=== PATIENT | female | born 1955 | race Caucasian/White ===

== ENCOUNTER → 2016-12-07 | Outpatient (CLI) | payer BC ==
[2016-12-07] VITALS (8 sets, daily range): BP systolic 110–136; BP diastolic 42–77; PULSE 59–72
[~2016-12-07] VITALS: Ht 172.7 cm; Wt 77.3 kg
[~2016-12-07] MED LIST: ADVIL200 MG PO; CALTRATE-600 W600 MG PO; COMPLETE SENIOR1 TA1 PO; COZAAR 25MG25 MG/TAB PO; ENBREL50 MG/ML SC; LUTEIN20 M1 PO
== END ==
LOC: COL.RAD 12:00
DX: D36.0 Benign neoplasm of lymph nodes (principal); C53.8 Malignant neoplasm of overlapping sites of cervix uteri; I10 Essential (primary) hypertension
CPT/HCPCS: 25757

== ENCOUNTER 2019-05-02 16:47 | Emergency (ER) | payer BC ==
[~2019-05-02] VITALS: Ht 172.7 cm; Wt 59.1 kg
[2019-05-02 18:00] LABS: BASO # 0.1 (0.0-0.2); BASO % 0.3 % (0.0-2.0); GRAN # 13.6 (1.4-6.5); GRAN % 86.5 % (42.2-75.2); HEMOGLOBIN 10.5 g/dl (12.5-16.0); LYMPH # 0.5 (1.2-3.4); MEAN CELL VOLUME 87 fl (80.0-100.0); MEAN CORPUSCULAR HEMOGLOBIN 30 pg (27.0-31.0); MEAN CORPUSCULAR HGB CONC 35 g/dl (33.0-37.0); MEAN PLATELET VOLUME 10.1 fl (7.4-10.4); MONO # 1.4 (0.1-0.6); MONO % 9.1 % (1.7-9.3); PLATELET COUNT 352 K/mm3 (130-400); RED BLOOD COUNT 3.49 M/mm3 (4.10-5.30); REDCELL DISTRIBUTION WIDTH-CV 14.2 % (11.5-14.5)
[2019-05-02 18:07] LABS: INR 1.6 (0.8-3.0); PROTHROMBIN TIME 19.2 SECONDS (9.7-12.8)
[2019-05-02 18:09] LABS: HEMATOCRIT 30.4 % (37.0-47.0)
[2019-05-02 18:10] LABS: BILIRUBIN,TOTAL 0.7 mg/dL (0.0-1.0); CALCIUM 8.2 mg/dL (8.4-10.2); CREATININE, serum 3.63 (0.52-1.25); POTASSIUM 4.7 mmol/L (3.4-5.0); TOTAL PROTEIN 6.6 gm/dL (6.4-8.2)
[2019-05-02 18:20] LABS: TROPONIN-I 0.023 ng/mL (0.000-0.035)
[2019-05-02 18:26] LABS: COLLECTION METHOD CLEAN CATCH
[2019-05-02 18:40] LABS: PH 5 (5-8); SQUAMOUS EPITHELIAL None Seen /hpf; URINE APPEARANCE Turbid; URINE BACTERIA Many /hpf; URINE BILIRUBIN Negative (NEGATIVE); URINE BLOOD 3+ (NEGATIVE); URINE COLOR Amber; URINE GLUCOSE Negative (NEGATIVE); URINE KETONE Negative (NEGATIVE); URINE LEUKOCYTE ESTERASE 2+ (NEGATIVE); URINE NITRATE Negative (NEGATIVE); URINE PROTEIN(semi-quant) 2+ (NEGATIVE); URINE RBC >50 /hpf; URINE UROBILINOGEN Negative (NEGATIVE)
[2019-05-02 20:15] VITALS: BP 114/74; PULSE 111; TEMP 100.4
== END 2019-05-02 20:35 | disposition short-term general hospital (02) ==
LOC: COL.ER 16:47
PROVIDERS: Emergency Medicine
DX: N39.0 Urinary tract infection, site not specified (principal); E86.0 Dehydration; E87.8 Other disorders of electrolyte and fluid balance, not elsewhere classified; N17.9 Acute kidney failure, unspecified; C53.9 Malignant neoplasm of cervix uteri, unspecified
CPT/HCPCS: J0696; J7030

== ENCOUNTER → 2019-06-09 | Outpatient (CLI) | payer BC | LOC: COL.RAD 10:01 | DX: C53.8 Malignant neoplasm of overlapping sites of cervix uteri (principal); K76.9 Liver disease, unspecified; N30.90 Cystitis, unspecified without hematuria; Z95.9 Presence of cardiac and vascular implant and graft, unspecified; Z96.0 Presence of urogenital implants | CPT/HCPCS: Q9967 ==

== ENCOUNTER 2019-07-27 09:00 | Day surgery (SDC) | payer BC ==
[~2019-07-27] VITALS: Ht 172.7 cm; Wt 62.0 kg
[2019-07-27 09:49] VITALS: BP 127/84; PULSE 89; TEMP 98.2
[2019-07-27] MEDS ORDERED: CIPRO 500MG TA500 MG PO (09:58)
[2019-07-27] MEDS ORDERED: COMPAZINE 110 MG/TAB PO (09:59)
[2019-07-27] MEDS ORDERED: SENOKOT S 50 MG1 TAB PO (10:00)
--- NOTE | 2019-07-27 10:02 | NUR ---
TO RM AT 0912- CALL LIGHT IN REACH AT BEDSIDE.
--- NOTE | 2019-07-27 10:16 | NUR ---
Initial visit; Prayer request. Patient and her thanked Manager Of Hospital for offering encouragement and prayer prior to 'procedure' and offered God's blessings of healing.
[2019-07-27 11:12] VITALS: BP 109/76; PULSE 95; TEMP 97.7
--- NOTE | 2019-07-27 11:12 | NUR ---
TO RM 1 PER CART FROM [facility] ALERT ORIETNED X3, TALKING TO STAFF. RECEIVED OJ. MARAVILLA SET DRESSING OVER INCISION CLEAN DRY INTACT.
[2019-07-27 11:25] VITALS: BP 110/78; PULSE 78
--- NOTE | 2019-07-27 11:25 | NUR ---
RECEIVED MUFFIN. AT BEDSIDE DENIES PAIN OR DISCOMFORT AT THIS TIME.
[2019-07-27 11:40] VITALS: BP 126/79; PULSE 82
--- NOTE | 2019-07-27 11:40 | NUR ---
ATE 100% AND TOLERATED WELL.
--- NOTE | 2019-07-27 11:50 | NUR ---
AMBULATED TO BATHROOM AND VOIDED DISCONTINUED IV AND INT
--- NOTE | 2019-07-27 12:00 | NUR ---
RECEIVED DISCHARGE INSTRUCTIONS AND VERBALIZED UNDERSTANDING.
--- NOTE | 2019-07-27 12:15 | NUR ---
DISCHARGED PER WC BY NURSING STAFF TO PRIVATE CAR IN CARE OF - MARV.
== END 2019-07-27 12:30 | disposition home or self-care (01) ==
LOC: SDCO 09:00
DX: T80.818A Extravasation of other vesicant agent, initial encounter (principal); C53.9 Malignant neoplasm of cervix uteri, unspecified; I10 Essential (primary) hypertension; M06.9 Rheumatoid arthritis, unspecified; Z82.49 Family history of ischemic heart disease and other diseases of the circulatory system; Z80.8 Family history of malignant neoplasm of other organs or systems; Z85.3 Personal history of malignant neoplasm of breast; Z82.3 Family history of stroke; Z95.828 Presence of other vascular implants and grafts
CPT/HCPCS: J2250; J2405; J2704; J7120

== ENCOUNTER → 2019-10-02 | Outpatient (CLI) | payer BC ==
[~2019-10-02] MED LIST changes: +CIPRO 500MG TA500 MG PO; +COMPAZINE 110 MG/TAB PO; +SENOKOT S 50 MG1 TAB PO
[2019-10-02 14:26] LABS: ALBUMIN 3.9 gm/dL (3.5-5.0); BILIRUBIN,TOTAL 0.4 mg/dL (0.0-1.0); CALCIUM 9.3 mg/dL (8.4-10.2); CREATININE, serum 1.23 (0.52-1.25); POTASSIUM 4.1 mmol/L (3.4-5.0); TOTAL PROTEIN 7.6 gm/dL (6.4-8.2)
== END ==
LOC: COL.LAB 13:35 → COL.RAD 13:35
PROVIDERS: Obstetrics & Gynecology Gynecologic Oncology
DX: Z01.812 Encounter for preprocedural laboratory examination (principal); C53.9 Malignant neoplasm of cervix uteri, unspecified; N32.9 Bladder disorder, unspecified; K62.89 Other specified diseases of anus and rectum
CPT/HCPCS: A9585

== ENCOUNTER 2023-09-02 10:00 | Inpatient (IN) | payer MEDICARE, OTHER ==
[~2023-09-02] VITALS: Ht 170.2 cm; Wt 72.9 kg
[2023-09-02] VITALS (542 sets, daily range): BP systolic 123–127; BP diastolic 82–84; PULSE 101–117; TEMP 98.1–98.6; O2SAT 78–100
[~2023-09-02 10:00] MED LIST changes: +ACTEMRA80 MG/4 ML; +BONIVA150 MG PO; +CALTRATE 600 +1 TAB PO; +CENTRUM SILVER1 CTB PO; +CLARITIN 1010 MG/TAB PO; +CRANRX500 MG PO; +EFFEXOR-XR150 MG PO; +HCTZ 25MG TAB25 MG PO; +K-DUR 10 MEQ T10 MEQ PO; +NORVASC 5MG5 MG/TAB PO; +PREDNISONE 5MG5 MG PO; +PRIL40 PO; +TYLENOL 500MG500 MG PO; +VITRON-C PO; +ZOFRAN8 MG PO
--- NOTE | 2023-09-02 12:10 | NUR ---
REPORT CALLED FROM ALEXANDRE AT TRANSFERING FACILITY AT 1057. PT WHEELED TO ROOM [place] [id number] AT 1210 BY EMS. PT ABLE TO STAND AND TRANSFER TO BED WITH SBA AND NS AT GRAVITY INFUSING. VS WNL AT THIS TIME AND PT DENIES PAIN. SHE IS A&O X3 AND ASSESSMENTS COMPLETED. SHE IS RESTING IN BED IN THE LOWEST POSITION, CALL LIGHT IS WITHIN REACH, AND SHE REPORTS HER SPOUSE IS ON THE WAY TO THE HOSPITAL. HER EAR RINGS AND WATCH WERE PLACED IN THE BREAST POCKET OF HER COAT AT HER DIRECTION UNTIL HER SPOUSE ARRIVES. SHE DENIES ADDITIONAL NEEDS AT THIS TIME.
[2023-09-02 13:32] LABS: HEMOGLOBIN 11.9 g/dl (12.5-16.0); MEAN CELL VOLUME 94 fl (80.0-100.0); MEAN CORPUSCULAR HEMOGLOBIN 32 pg (27-31); MEAN CORPUSCULAR HGB CONC 34 g/dl (33.0-37.0); MEAN PLATELET VOLUME 9.7 fl (7.4-10.4); PLATELET COUNT 250 K/mm3 (130-400); RED BLOOD COUNT 3.68 M/mm3 (4.10-5.30); REDCELL DISTRIBUTION WIDTH-CV 14.1 % (11.5-14.5)
[2023-09-02 13:34] LABS: HEMATOCRIT 34.7 % (37.0-47.0)
[2023-09-02 13:47] LABS: CALCIUM 7.4 mg/dL (8.4-10.2); CREATININE, serum 1.48 mg/dL (0.57-1.11); POTASSIUM 4.2 mmol/L (3.5-4.5)
[2023-09-02 14:08] LABS: BAND 50 % (0-10); NEUTROPHILS 49 % (42.0-75.2)
[2023-09-02 14:09] LABS: PLATELET ESTIMATE NORMAL (NORMAL)
[2023-09-02] MEDS ORDERED: COZAAR 25MG25 MG/TAB PO (15:37)
[2023-09-03] VITALS (556 sets, daily range): BP systolic 100–130; BP diastolic 53–78; PULSE 84–106; TEMP 97.7–97.9; O2SAT 68–100
[2023-09-03 04:48] LABS: HEMOGLOBIN 11.5 g/dl (12.5-16.0); MEAN CELL VOLUME 95 fl (80.0-100.0); MEAN CORPUSCULAR HEMOGLOBIN 32 pg (27-31); MEAN CORPUSCULAR HGB CONC 34 g/dl (33.0-37.0); PLATELET COUNT 244 K/mm3 (130-400); REDCELL DISTRIBUTION WIDTH-CV 14.2 % (11.5-14.5)
[2023-09-03 04:56] LABS: HEMATOCRIT 34.1 % (37.0-47.0)
[2023-09-03 05:05] LABS: CALCIUM 7.8 mg/dL (8.4-10.2); CREATININE, serum 1.64 mg/dL (0.57-1.11); MAGNESIUM 1.6 mg/dL (1.6-2.6); POTASSIUM 3.9 mmol/L (3.5-4.5)
--- NOTE | 2023-09-03 06:09 | NUR ---
0605; BILAT NEPHROSTOMY TUBES FLUSHED WITH 10CC NS, PT TOLERATED WELL. ASCEPTIC TECHNIQUE USED.
--- NOTE | 2023-09-03 07:00 | NUR ---
Report received from RADHA Cohen. Reviewed labs and gttts. Reproted that dressings to bilateral neph tubees were just changed. Dressing to prot and neph tubes are CDI. Pt sitting up in bed and ordering breakfast. Denies pain or any other needs at this time. Call light wthin reach.
--- NOTE | 2023-09-03 07:28 | NUR ---
0645: dressing chance to bilaterl nephrotomy tube sites, using small drain 2x2, chlorhexidine, and large op site dressing. tube s sutured in. placed small loop of tube in dressing.
[2023-09-03] MEDS ORDERED: PROTONIX 40MG T40 MG PO (07:44)
[2023-09-03] MEDS ORDERED: ALPHAGAN OPHTH D5 ML OU (07:55)
--- NOTE | 2023-09-03 09:57 | NUR ---
Initial visit; Patient and Criminal Intelligence Analyst agreed that it seems as if there is always a challenge in our lives. Criminal Intelligence Analyst offers insight into facing one day at a time and living God's plan for us. Criminal Intelligence Analyst offered prayer and God's blessings for healing.
--- NOTE | 2023-09-03 10:11 | NUR ---
CELL COVERER reviewed pt's clinical record and noted she was transferred here from another hospital, [facility] for pain in her side secondary to metastatic cervical cancer. CELL COVERER met with pt @ the bedside after rounds this morning to complete inital intake. Pt was pleasant and oriented to person, time, place and situation. x 16 years, she lives with her in [place] in [place], [place]. She has no biological children, but has a stepson, Elvira, also her alternate HCPOA, who lives nearby. (Her is primary and the documents are @ home). Pt reports she suffers from cervical cancer and she is on her 3rd round of chemotherapy that she will receive on 09/10. Pt reports she is independent in her IADL's and her , a bey assists with ADL's, such as cooking etc. She ambulates independently, using no assistive devices, but holds onto furniture for support. "I'm wobbly." Pt admitted she fell 3 weeks ago on her living room carpet but she denied sustaining any injuries. Pt shared she will meed another primary care provider in the [place] area b/c her current provider is ill. Currently, Dr. Mejia is listed as her primary care provider, and pt fills her prescriptions thru [facility] in [place]. Pt states she does not anitcipate a need for outpt services @ home. No other concerns noted.
[2023-09-03] MEDS ORDERED: [UNRECOGNIZED DRUG - OTHER] IV (10:18)
--- NOTE | 2023-09-03 12:57 | NUR ---
Report called to Stevan at 1223. All questions answered. Bilateral nephrostomy tubes empited prior to going upstiars. Pt escorted upstairs via wheelchair.
--- NOTE | 2023-09-03 13:14 | NUR ---
PATIENT CAME IN FROM [facility]. PATIENT IS ALERT AND ORIENTED X4. PATIENT REPORTS NO PAIN. PATIENT HAD BILATERAL NEPHROSTOMY TUBES. DRESSING CLEAN DRY INTACT IN THE BILATERAL INCISION SITES. DRAINAGE IS BLOOD TINGE. PATIENT CALL LIGHT WITH IN REACH. ALARM BED ON. BED AT LOWEST POSITION.
--- NOTE | 2023-09-03 20:30 | NUR ---
Initial shift assessment done- denies pain at this time, states not much of an appetite, IV fluids of LR at 75cc/hr, VSS, has bilateral nephrostomy tubes draining dk otto urine.
[2023-09-04 00:29] VITALS: BP 125/68; PULSE 103; TEMP 98
[2023-09-04 03:17] VITALS: BP 133/78; PULSE 94; TEMP 98.2
--- NOTE | 2023-09-04 06:30 | NUR ---
Did not sleep much during the night-- up to the bathroom 2-3 times for small amount liquid/soft stool, states stomach is a little upset but just wants a Sprite now Did irrigate bilateral nephrostomy tubes with 10cc sterile saline this morning- right had 175cc out and left had 150cc out for this shift
[2023-09-04 06:38] LABS: HEMOGLOBIN 11.4 g/dl (12.5-16.0); MEAN CELL VOLUME 93 fl (80.0-100.0); MEAN CORPUSCULAR HEMOGLOBIN 32 pg (27-31); MEAN CORPUSCULAR HGB CONC 35 g/dl (33.0-37.0); MEAN PLATELET VOLUME 10.4 fl (7.4-10.4); PLATELET COUNT 251 K/mm3 (130-400); RED BLOOD COUNT 3.55 M/mm3 (4.10-5.30); REDCELL DISTRIBUTION WIDTH-CV 13.9 % (11.5-14.5)
[2023-09-04 06:45] LABS: CALCIUM 7.5 mg/dL (8.4-10.2); CREATININE, serum 1.32 mg/dL (0.57-1.11); MAGNESIUM 1.4 mg/dL (1.6-2.6)
[2023-09-04 06:48] LABS: POTASSIUM 2.9 mmol/L (3.5-4.5)
[2023-09-04 07:59] VITALS: BP 127/89; PULSE 109; TEMP 97.7
--- NOTE | 2023-09-04 12:29 | NUR ---
Composing Machine Operator rounds: Long conversation with Patient about her Buddhism [place]; her mosque; and her cancer treatments. Composing Machine Operator provided supportive listening as Patient conducted life review. Composing Machine Operator prayed for all that Patient discussed. Composing Machine Operator provided Patient with deidre fitzpatrick.
[2023-09-04 13:10] VITALS: BP 138/86; PULSE 94; TEMP 97.7
[2023-09-04 15:12] LABS: CLOSTRIDIUM DIFF A/B NEG
[2023-09-04 15:32] VITALS: BP 117/74; PULSE 110; TEMP 97.8
[2023-09-04 20:03] VITALS: BP 146/86; PULSE 96; TEMP 98.5
[2023-09-04 21:31] LABS: MAGNESIUM 1.4 mg/dL (1.6-2.6); POTASSIUM 3.3 mmol/L (3.5-4.5)
[2023-09-05] VITALS (7 sets, daily range): BP systolic 129–150; BP diastolic 89–96; PULSE 94–107; TEMP 97.5–98.9
--- NOTE | 2023-09-05 06:16 | NUR ---
Shift assessment completed at 2030. A7Ox4. Pt recieved all medications per emar. Portacath on right side of ther chest. Bilateral nephrostomy tubes on right and left side of her lower back. Pt is no longer in contact precautions. At 0200 nephrostomy tubes were flushed with 10 ml each one and emptied around 420 ml of dark otto and cloudy urine. Patient had three episodes of loose stool during the night and denied any pain. Potassium and magnesium were checked and replaced per orders. Fluids running at this time. Bed alarm on, belongings and call light are within reach.
--- NOTE | 2023-09-05 08:33 | NUR ---
PATIENT ALERT AND ORIENTED X4. PATIENT IS LAYING IN BED UPON ENTERING ROOM. PATIENT REPORTED HAVING ABOUT 3 LOOSE STOOL EPISODES LAST NIGHT. PATIENT DENIES PAIN. CALL LIGHT WITHIN REACH.
[2023-09-05 08:39] LABS: HEMOGLOBIN 11.9 g/dl (12.5-16.0); MEAN CELL VOLUME 93 fl (80.0-100.0); MEAN CORPUSCULAR HEMOGLOBIN 32 pg (27-31); MEAN CORPUSCULAR HGB CONC 35 g/dl (33.0-37.0); MEAN PLATELET VOLUME 10.2 fl (7.4-10.4); PLATELET COUNT 266 K/mm3 (130-400); REDCELL DISTRIBUTION WIDTH-CV 14.1 % (11.5-14.5)
[2023-09-05 08:45] LABS: CALCIUM 7.5 mg/dL (8.4-10.2); CREATININE, serum 1.13 mg/dL (0.57-1.11); HEMATOCRIT 34.3 % (37.0-47.0); MAGNESIUM 1.6 mg/dL (1.6-2.6)
[2023-09-06] VITALS (8 sets, daily range): BP systolic 125–140; BP diastolic 80–92; PULSE 100–103; TEMP 97.5–97.9
--- NOTE | 2023-09-06 05:15 | NUR ---
ASSESSMENT COMPLETE FOR DYNAMICS AX SOLUTION ARCHITECT. PT COMPLAINED OF DIARRHEA. PT GIVEN IMODIUM PER ORDERS. PT DID NOT FEEL THE IMODIUM WAS EFFECTIVE, SHE TAKES TWICE THE DOSE AT HOME. BILAT. NEPHROSTOMY TUBES FLUSHED AND BAGS DRAINED. RIGHT BAG CONTAINED WHAT LOOKED LIKE TINY KIDNEY STONES. WHEN THE LEFT TUBE WAS FLUSHED, IT RETURNED PINK TINGED FLUID (URINE/NS), WHICH QUICKLY CLEARED. PT DENIED PAIN OR ANY OTHER SYMPTOMS. HOSPITALIST NOTIFIED. PT DENIED GENERAL PAIN, CHEST PAIN, SOB, N,V OR DIZZINESS. FALL PRECAUTIONS IN PLACE. BED ALARM ON. CALL LIGHT WITHIN REACH.
--- NOTE | 2023-09-06 07:00 | NUR ---
PT RESTING IN BED WATCHING TV. WAS INFORMED BY SEED AND FERTILIZER SPECIALIST THEY WERE UNABLE TO DRAW BLOOD OF PTS PORT. THIS RN ATTEMPED WITH NO RESULTS, HAD PT TURN HEAD, COUGH, AND REPOSITION RIGHT ARM, STILL NO RESULTS. MESSAGE LEFT FOR AIVS. PT IS ON RA. PT IS SR ON TELE. PT IS AXOX3 AND HAS CALL LIGTH WITHIN REACH. PT INSTRUCTED TO CALL WITH ALL NEEDS. LAB [facility] BLOOD. 0835- NOTIFIED OF BEING UNABLE TO DRAW BLOOD OFF PORT. ORDER FOR CHEST XRAY RECEIVED. PT NOTIFIED
[2023-09-06 09:02] LABS: HEMOGLOBIN 12.2 g/dl (12.5-16.0); MEAN CELL VOLUME 94 fl (80.0-100.0); MEAN CORPUSCULAR HEMOGLOBIN 33 pg (27-31); MEAN CORPUSCULAR HGB CONC 35 g/dl (33.0-37.0); PLATELET COUNT 280 K/mm3 (130-400); RED BLOOD COUNT 3.74 M/mm3 (4.10-5.30); REDCELL DISTRIBUTION WIDTH-CV 14.3 % (11.5-14.5)
[2023-09-06 09:06] LABS: CALCIUM 7.5 mg/dL (8.4-10.2); CREATININE, serum 1.06 mg/dL (0.57-1.11); MAGNESIUM 1.7 mg/dL (1.6-2.6); POTASSIUM 3.8 mmol/L (3.5-4.5)
[2023-09-06] MEDS ORDERED: LEVAQUIN 750MG750 M1 PO (13:29)
[2023-09-06] MEDS ORDERED: IMODIUM 2MG CAPS2 MG PO (13:42)
[2023-09-06] MEDS ORDERED: PROBIOTIC ACID1 EAC3 PO (13:43)
--- NOTE | 2023-09-06 16:01 | NUR ---
PTS PORT FLUSHED WITH HEPARIN THEN DC'D WITH NO ISSUES. BILATERAL NEPHRO TUBES DRAINED. DISCHARGE INSTRUCTIONS DISCUSSED WITH PT. DISCUSSED FOLLOW UPS AND NEW MEDICATIONS. DISCUSSED LAB WORK TO BE DRAWN TOMORROW. ALL QUESTIONS ANSWERED. PT AWAITING RIDE.
--- NOTE | 2023-09-06 16:50 | NUR ---
PT WHEELED OUT FOR DISCHARGE BY ANAYELI TAYLOR. ACCOMPAINED BY PT'S BROTHER.
--- NOTE | 2023-09-06 16:56 | NUR ---
Barrel Drum Cutter met with Patient at bedside to discuss disharge planning. SW discussed HH with Patient. Patient declines HH and would like to discharge home with no services. Patient is anticipated to discharge home today.
== END 2023-09-06 16:50 | disposition home or self-care (01) | DRG 872 ==
LOC: IMCU 10:00 → MEDICAL 12:32
PROVIDERS: ADMIT Internal Medicine
DX: A41.9 Sepsis, unspecified organism (principal); N39.0 Urinary tract infection, site not specified; N17.9 Acute kidney failure, unspecified; E87.20 Acidosis, unspecified; E44.0 Moderate protein-calorie malnutrition; C53.9 Malignant neoplasm of cervix uteri, unspecified; I12.9 Hypertensive chronic kidney disease with stage 1 through stage 4 chronic kidney disease, or unspecified chronic kidney disease; N18.30 Chronic kidney disease, stage 3 unspecified; E87.6 Hypokalemia; E83.42 Hypomagnesemia; R19.7 Diarrhea, unspecified; Z68.30 Body mass index [BMI] 30.0-30.9, adult
CPT/HCPCS: J1644; J1650; J2543; J3475; J7120